=== PATIENT | female | born 1940 | race Two or more races ===

== ENCOUNTER 2020-10-06 07:12 | Outpatient (CLI) | payer OTHER ==
[~2020-10-06 07:12] MED LIST: ARICEPT10 MG; ATORVASTATIN CA10 MG; CHILDREN'S ASPI81 MG; MAGNESIUM250 M1
== END 2020-10-06 09:05 | disposition home or self-care (01) ==
LOC: TOM 07:12
PROVIDERS: ATTEND Internal Medicine Gastroenterology
DX: K56.601 Complete intestinal obstruction, unspecified as to cause (principal)